=== PATIENT | female | born 1950 | race Caucasian/White ===

== ENCOUNTER 2020-04-25 12:22 | Outpatient (CLI) | payer MEDICARE ==
--- NOTE | 2020-04-25 18:18 | RAD ---
LUMBAR SPINE 04/25/20 No prior films were available for comparison. I did review the scanogram from a 01/28/13 CT of the [facility] men, however. There is an anterior compression of the superior end plate of L4. It was not present in 2013. There is no displacement of the vertebrae. The disc spaces show some narrowing at L5-S1 along with some osteophytes and some facet arthritis at this level. The SI joints are symmetrical. IMPRESSION: Mild compression of L4, a new finding since 2012. POS: HOME
== END 2020-04-25 12:23 | disposition home or self-care (01) ==
LOC: BURRAD 12:22
PROVIDERS: ATTEND Family Medicine
DX: M54.5 Low back pain (principal)
CPT/HCPCS: 72100